=== PATIENT | female | born 1955 | race Caucasian/White ===

== ENCOUNTER → 2016-10-12 | Outpatient (CLI) | payer BC, MEDICARE ==
[~2016-10-12] MED LIST: AMIT25TA PO; DIPH25CA58 PO; DOCU-27 PO; ESTR0.45 PO; ESTR30CR VG; GABA-586 PO; HYDR-965 PO; LEVO75TA5 PO; LISI1TAB5 PO; MIRA50TA PO; MOME13HF2 IH; OXYB15TA PO; PROAIR HFA8.5 GM INH; TIZA4TAB PO
[2016-10-12 14:36] LABS: BASO # 0.1 x10^3/uL (0.0-0.2); BASO % 1 % (0-3); EOS % 4 % (0-3); HEMATOCRIT 40.1 % (36.0-47.0); HEMOGLOBIN 13.3 g/dL (12.0-15.5); LYMPH # 2.2 x10^3/uL (1.0-4.8); LYMPH % 20 % (24-48); MEAN CORPUSCULAR HEMOGLOBIN 30 pg (25-35); MEAN CORPUSCULAR HGB CONC 33 g/dL (31-37); MEAN CORPUSCULAR VOLUME 89 fL (79-100); MONO % 6 % (0-9); NEUT % 69 % (31-73); PLATELET COUNT 252 x10^3/uL (140-400); RED CELL DISTRIBUTION WIDTH 13.9 % (11.5-14.5); WHITE BLOOD COUNT 11.1 x10^3/uL (4.0-11.0)
--- NOTE | 2016-10-12 14:39 | EKG ---
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
[2016-10-12 14:51] LABS: ALBUMIN 3.4 g/dL (3.4-5.0); GFR 56.4; POTASSIUM 3.5 mmol/L (3.5-5.1); TOTAL BILIRUBIN 0.2 mg/dL (0.2-1.0); TOTAL PROTEIN 6.8 g/dL (6.4-8.2)
--- NOTE | 2016-10-13 11:28 | HP ---
ADMIT DATE: 10/19/2016 DATE OF SURGERY: 10/19/2016. HISTORY OF PRESENT ILLNESS: The patient is a pleasant 61-year-old who is having problems with low back pain and pain which radiates into her buttocks. The right side is more involved than the left. The pain is in the right posterior thigh and leg to the top of the side of her foot. The problem began about 2 months ago. She rates her pain as a 7/10. She says the pain is severe, and she cannot sleep at night. 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 The pain is constant. She takes hydrocodone, but it creates nausea. Physical therapy was of no benefit. She had an epidural steroid injection, which did not help her significantly. PAST MEDICAL HISTORY: Asthma, hepatitis A, hepatitis B/hepatitis C, and hypertension. PAST SURGICAL HISTORY: Lumbar surgery x2, knee surgery, and hysterectomy. FAMILY HISTORY: Cancer, diabetes, heart problem/disease, hypertension, migraine headaches, and spine problems. SOCIAL HISTORY: . Exercises daily. Denies substance abuse. Denies alcohol use. Smokes 1 pack per day and has for 50 years. ALLERGIES: No known drug allergies. CURRENT MEDICATIONS: Premarin, lisinopril, amitriptyline, tizanidine, levothyroxine, oxybutynin, gabapentin, diphenhydramine, Myrbetriq, ProAir HFA, Dulera, and [place]. REVIEW OF SYSTEMS: A 12-point review of systems was obtained and is noncontributory except for that mentioned above. PHYSICAL EXAMINATION: NEUROSURGERY EXAMINATION: GENERAL APPEARANCE: Alert, pleasant, in no acute distress. HEAD: Normocephalic and atraumatic. SKIN: Warm and dry. Well-healed lumbar incision. MUSCULOSKELETAL: Lumbar paraspinal muscle bulk is normal, restricted range of motion of lumbar spine, hisy-[id number] tenderness of lower lumbar spine with palpation, and normal range of motion of the lower extremities bilaterally. EXTREMITIES: No clubbing, cyanosis, or edema. NEUROLOGIC: Alert and oriented x 3, normal recent and remote memory, strength 5/5 in bilateral lower extremities, sensory was intact to light touch in bilateral lower extremities except for decrease on the right dorsal and lateral surface of her foot, reflexes were trace and symmetric in the lower extremities bilaterally, positive straight leg raising on the right and negative straight leg raising on the left, normal gait. IMAGING REVIEWED: I reviewed a lumbar MRI scan. On that study, the principal abnormalities are at L2-L3 where there are significant disk degenerative problems with posterior disk bulging, which is quite prominent on the right side with moderately severe neural foraminal and lateral recess narrowing. There are postoperative changes below this level at L3-L4 and L4-L5. I did not see significant central canal stenosis or neural foraminal narrowing at L5-S1. ASSESSMENT: 1. Intervertebral disk disorders with radiculopathy, lumbar region. 2. Spinal stenosis, lumbar region. PLAN: I believe that most likely the problems at L2-L3 on the right are causing her pain. The pattern of pain does not match well with L2-L3 level. However, her right lower extremity problems are clearly radicular, and there are no other significant areas of right-sided abnormalities seen on the lumbar MRI scan. I explained to her that I was willing to operate and perform a lumbar microsurgery at L2-L3 on the right to see if this would not help with her severe pain. I discussed surgery and the risks. She understands and would like to go ahead. We will make the arrangements. LEONARD SAINI MD DR: LEBRON/maria antonia JOB#: [id number] / [id number]
== END | disposition home or self-care (01) ==
LOC: SURGPAT 13:21
PROVIDERS: ATTEND Neurological Surgery
DX: M51.16 Intervertebral disc disorders with radiculopathy, lumbar region (principal); M48.06 Spinal stenosis, lumbar region
CPT/HCPCS: 36415; 80053; 85027; 87641; 93005

== ENCOUNTER 2016-10-19 06:53 | Day surgery (SDC) | payer BC, MEDICARE ==
[~2016-10-19] VITALS: Ht 162.6 cm; Wt 63.5 kg
[~2016-10-19 06:53] MED LIST changes: +BACITRACIN 50,000 UNIT in IV NORMAL SALINE 1000ML BAG 1,000 ML IRR ONE; -DOCU-27 PO; -HYDR-965 PO
[2016-10-19] MEDS ORDERED: ONDANSETRON PF 4 MG/2 ML VIAL. IV PRN (07:00)
[2016-10-19] MEDS ORDERED: PROCHLORPERAZINE 10 MG/2 ML VIAL. IV PRN (07:00)
[2016-10-19] MEDS ORDERED: fentaNYL PF VIAL 100 MCG/2 ML VIAL IV PRN ×2 (07:00)
[2016-10-19] MEDS ORDERED: LIDOCAINE 1% 1 ML SYRINGE. ID PRN (07:00)
[2016-10-19] MEDS ORDERED: MORPHINE SULFATE 2 MG/ML DISP.SYRIN. IV PRN (07:00)
[2016-10-19] MEDS ORDERED: IV RINGERS,LACTATED 1000ML 1,000 ML IV SCH (07:00)
[2016-10-19] MEDS ORDERED: HYDROmorphone 2 MG/ML VIAL IV PRN (07:00)
[2016-10-19] MEDS ORDERED: BUPIVAC MPF-EPI 0.5%-1:200000 30 ML VIAL. ONE (07:48)
[2016-10-19] MEDS ORDERED: GELATIN SPONGE SIZE 100. ONE (07:48)
[2016-10-19] MEDS ORDERED: THROMBIN TOPICAL 20,000 UNIT SPRAY.SYRN KIT TP ONE (07:48)
[2016-10-19] MEDS ORDERED: KETOROLAC 60 MG/2 ML INJ FOR OR. ONE (07:48)
[2016-10-19] MEDS ORDERED: ONDANSETRON PF 4 MG/2 ML VIAL. ONE (08:09)
[2016-10-19] MEDS ORDERED: DEXAMETHASONE SOD PHOS 20 MG/5 ML VIAL. ONE (08:09)
[2016-10-19] MEDS ORDERED: LIDOCAINE 2% 100 MG/5 ML SYRINGE. ONE (08:09)
[2016-10-19] MEDS ORDERED: PROPOFOL 20 ML IV ONE (08:09)
[2016-10-19] MEDS ORDERED: fentaNYL PF VIAL 100 MCG/2 ML VIAL ONE (08:10)
[2016-10-19] MEDS ORDERED: REMIFENTANIL 2 MG VIAL. IV ONE (08:10)
[2016-10-19] MEDS ORDERED: ePHEDrine PF IN SALINE 50 MG/5 ML DISP.SYRIN IV ONE (08:11)
[2016-10-19] MEDS ORDERED: PHENYLEPHRINE in 0.9% NACL PF 1 MG/10 ML DISP.SYRIN. IV ONE (08:11)
[2016-10-19] MEDS ORDERED: SCOPOLAMINE 1.5MG PATCH. TD ONE (08:15)
[2016-10-19] MEDS ORDERED: ROCURONIUM 50 MG/5 ML VIAL. ONE (08:15)
[2016-10-19] MEDS ORDERED: DESFLURANE > 120 MINUTES IH ONE (08:59)
[2016-10-19] MEDS ORDERED: PHENYLEPHRINE 10 MG/ML VIAL. ONE (09:42)
[2016-10-19] MEDS ORDERED: PROPOFOL 50 ML IV ONE ×2 (09:42)
[2016-10-19] MEDS ORDERED: NEOSTIGMINE METHYLSULFATE 5 MG/5 ML SYRINGE. ONE (10:31)
[2016-10-19] MEDS ORDERED: GLYCOPYRROLATE 1 MG/5 ML VIAL. ONE (10:31)
--- NOTE | 2016-10-19 10:39 | DISCH ---
DISCHARGE INSTRUCTIONS Condition on Discharge Condition on Discharge: Stable Activity After Discharge Activity Instructions for Disc: Resume previous activity, Activity as tolerated Other activity instructions: no driving for a week Bathing Instructions: Shower-keep dressing dry Lifting Instructions after Dis: No heavy lifting, No pulling or pushing, Do not lift >10 pounds Diet after Discharge Additional Diet Restrictions: resume home diet Wound Incision Care Wound/Incision Care: Ice to area for comfort Other wound/incision instructi: may remove dressing in 48 hrs if dry then may shower- no soaking Contacting the after DC Call your doctor for: Concerns you may have Follow-Up Follow up with: Dr. Saini's nurse in 2 weeks [phone] LEONARD SAINI MD October 19, 2016 10:39
[2016-10-19] MEDS ORDERED: DOCU-27 PO (10:45)
[2016-10-19] MEDS ORDERED: HYDR-965 PO (10:45)
[2016-10-19 11:17] VITALS: BP 131/62
[2016-10-19] MEDS ORDERED: HYDROcodone/APAP 7.5/325MG 1 TAB TABLET PO PRN (11:30)
--- NOTE | 2016-10-19 12:19 | OP ---
DATE OF SURGERY: PREOPERATIVE DIAGNOSIS: Lateral recess stenosis and posterior disk bulging, right L2-L3, with right lumbar radiculopathy. POSTOPERATIVE DIAGNOSIS: Lateral recess stenosis and posterior disk bulging, right L2-L3, with right lumbar radiculopathy. OPERATION PERFORMED: Hemilaminotomy with microdecompression and microdiskectomy, right L2-L3, the operation was done with EMG monitoring, fluoroscopy, microscopic dissection. TRUCK BODY REPAIRER: DEJAN Rodriguez, assisted with the surgery. She assisted with the decompression as well as the closure. OPERATIVE INDICATIONS: The patient is a pleasant 61-year-old woman, who in the past has undergone multilevel lumbar instrumented fusion and did well from that. She then developed more recently problems with back and right leg pain which failed conservative measures and on imaging studies, she had the above-mentioned findings and I recommended lumbar microsurgical decompression alone. I discussed with her the surgery, the risks, technique and the expected postoperative course and she wished to go ahead. DESCRIPTION OF PROCEDURE: Following general endotracheal anesthesia, the patient was positioned prone on the Ab table. Her lumbar regions prepped and draped in standard fashion. LOULOU hose and AV impulse boots were applied for DVT prophylaxis. A microscope was draped. Fluoroscopy was draped and brought into the field. Monitoring was established. Ancef 2 grams was given less than 1 hour prior to initiation of the surgery. Using fluoroscopic guidance, an incision was made over the L2-3 interspace. I dissected down through the skin and subcutaneous tissue and reflected the paraspinal muscles and placed a [place] micro disk retractor, brought in the microscope and the remainder of surgery was done with the microscope using microscopic technique. I burred down a generous hemilaminotomy. I then trimmed away very thickened ligamentum flavum exposing the dura and the exiting nerve root. was lifted and scarred down to a chronic disk herniation and I gently freed the nerve from the underlying disk and began removal of some of the disk fragments. Some of the disk was heavily calcified and did not need removal, but other portions were softer and I removed these and as I worked, the region became very well decompressed. Following this, then I performed a generous partial foraminotomy. I assured myself that the root was quite free throughout its course. There was some epidural fat in the midline, which was pushing down on the dura and I removed some of this material and then I irrigated copiously. I used small amounts of bone wax as well as the bipolar when necessary. I then closed the wound in layers with absorbable suture after obtaining excellent hemostasis and irrigating copiously following removal of retractor. The skin was closed with 4-0 subcuticular stitch. The operation went very well. I was quite pleased with the surgery. LEONARD SAINI MD DR: LEBRON/maria antonia JOB#: [id number] / [id number]
--- NOTE | 2016-10-23 11:47 | HP ---
ADMIT DATE: 10/19/2016 DATE OF SURGERY: 10/19/2016. HISTORY OF PRESENT ILLNESS: The patient is a pleasant 61-year-old who is having problems with low back pain and pain which radiates into her buttocks. The right side is more involved than the left. The pain is in the right posterior thigh and leg to the top of the side of her foot. The problem began about 2 months ago. She rates her pain as a 7/10. She says the pain is severe, and she cannot sleep at night. 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 The pain is constant. She takes hydrocodone, but it creates nausea. Physical therapy was of no benefit. She had an epidural steroid injection, which did not help her significantly. PAST MEDICAL HISTORY: Asthma, hepatitis A, hepatitis B/hepatitis C, and hypertension. PAST SURGICAL HISTORY: Lumbar surgery x2, knee surgery, and hysterectomy. FAMILY HISTORY: Cancer, diabetes, heart problem/disease, hypertension, migraine headaches, and spine problems. SOCIAL HISTORY: . Exercises daily. Denies substance abuse. Denies alcohol use. Smokes 1 pack per day and has for 50 years. ALLERGIES: No known drug allergies. CURRENT MEDICATIONS: Premarin, lisinopril, amitriptyline, tizanidine, levothyroxine, oxybutynin, gabapentin, diphenhydramine, Myrbetriq, ProAir HFA, Dulera, and [place]. REVIEW OF SYSTEMS: A 12-point review of systems was obtained and is noncontributory except for that mentioned above. PHYSICAL EXAMINATION: NEUROSURGERY EXAMINATION: GENERAL APPEARANCE: Alert, pleasant, in no acute distress. HEAD: Normocephalic and atraumatic. SKIN: Warm and dry. Well-healed lumbar incision. MUSCULOSKELETAL: Lumbar paraspinal muscle bulk is normal, restricted range of motion of lumbar spine, [id number] tenderness of lower lumbar spine with palpation, and normal range of motion of the lower extremities bilaterally. EXTREMITIES: No clubbing, cyanosis, or edema. NEUROLOGIC: Alert and oriented x 3, normal recent and remote memory, strength 5/5 in bilateral lower extremities, sensory was intact to light touch in bilateral lower extremities except for decrease on the right dorsal and lateral surface of her foot, reflexes were trace and symmetric in the lower extremities bilaterally, positive straight leg raising on the right and negative straight leg raising on the left, normal gait. IMAGING REVIEWED: I reviewed a lumbar MRI scan. On that study, the principal abnormalities are at L2-L3 where there are significant disk degenerative problems with posterior disk bulging, which is quite prominent on the right side with moderately severe neural foraminal and lateral recess narrowing. There are postoperative changes below this level at L3-L4 and L4-L5. I did not see significant central canal stenosis or neural foraminal narrowing at L5-S1. ASSESSMENT: 1. Intervertebral disk disorders with radiculopathy, lumbar region. 2. Spinal stenosis, lumbar region. PLAN: I believe that most likely the problems at L2-L3 on the right are causing her pain. The pattern of pain does not match well with L2-L3 level. However, her right lower extremity problems are clearly radicular, and there are no other significant areas of right-sided abnormalities seen on the lumbar MRI scan. I explained to her that I was willing to operate and perform a lumbar microsurgery at L2-L3 on the right to see if this would not help with her severe pain. I discussed surgery and the risks. She understands and would like to go ahead. We will make the arrangements. LEONARD SAINI MD DR: LEBRON/maria antonia JOB#: [id number] / [id number]
--- NOTE | 2016-10-23 15:11 | PATHOLOGY ---
PATHOLOGY REPORT * * * * * * * * FINAL DIAGNOSIS: "Lumbar disc and decompression", removal: - Fragments of unremarkable bone and fibrocartilage. - Fragments of unremarkable fibroadipose tissue and skeletal muscle. REPORT ELECTRONICALLY SIGNED BY: Eric Henry M.D. DATE/TIME: 10/23/2016 15:11 * * * * * * * * GROSS PATHOLOGY: Received in formalin labeled "Divya Emmanuel, lumbar disc and decompression" are multiple segments of kumar, rubbery, and gritty tissue admixed with bone. The specimen measures 4.0 x 3.5 x 0.7 cm in aggregate dimensions. The tissue is submitted representatively in cassette A1, following decalcification. (CAA; 10/20/2016) INITIAL CPT CODE(S): A; 74507, 65893 Professional services performed by [facility], [address] [place] [address]. Technical services performed by [facility], [address] [place] [address], [address], [place] [address]. SPECIMEN(S) RECEIVED: A.Lumbar disc and decompression CLINICAL HISTORY: Lumbar herniated disc with radiculopathy, lumbar stenosis PATIENT: DIVYA EMMANUEL /AGE: 10 1955 (Age: 61) PATIENT #: [id number] ALT CASE #: SPECIMEN COLLECTION DATE: 10/19/2016 SPECIMEN RECEIVED DATE: 10/19/2016 [facility] - [address] [place] [address] - PHONE: [phone] * * * END OF REPORT * * *
== END 2016-10-19 12:14 | disposition home or self-care (01) ==
LOC: SURG 06:53
PROVIDERS: ATTEND Neurological Surgery
DX: M51.16 Intervertebral disc disorders with radiculopathy, lumbar region (principal); M48.06 Spinal stenosis, lumbar region; I10 Essential (primary) hypertension; J44.9 Chronic obstructive pulmonary disease, unspecified; J45.909 Unspecified asthma, uncomplicated; M19.90 Unspecified osteoarthritis, unspecified site; E03.9 Hypothyroidism, unspecified; Z90.710 Acquired absence of both cervix and uterus; Z98.51 Tubal ligation status; Z72.0 Tobacco use; Z87.01 Personal history of pneumonia (recurrent)
CPT/HCPCS: 63030; 76000; J0690; J1100; J1885; J2405; J2704; J2710; J3010; J3490; J7030; 88304; 88311; J0780; J2370